=== PATIENT | female | born 1955 | race Caucasian/White ===

== ENCOUNTER 2017-01-30 14:43 | Emergency (ER) | payer OTHER ==
[2017-01-30 14:53] VITALS: BP 138/98; PULSE 76; TEMP 98.3; BMI 20.5
--- NOTE | 2017-01-30 14:53 | PDOC ---
History of Present Illness - General History Source: Patient Exam Limitations: No Limitations - History of Present Illness Initial Comments: 01/30/17 15:04 The patient is a 61 year old female, with no significant past medical history, who presents to the emergency department complaining of bleeding from the umbilicus for approximately 5 days. The patient reports initially she thought she was bit in her belly button last . Since then, patient reports she has noted bleeding and increased erythema to the area. Patient reports cleaning the area with baking soda, with no relief of symptoms. Patient states she now thinks the site is infected. She denies any associated weakness, fever, chills, headache, or dizziness. She denies any abdominal pain, nausea, vomiting, diarrhea, or constipation. She denies any recent travel or sick contacts. Patient reports she had exposure to MRSA about 1 year ago, but states her symptoms have since resolved. Allergies: Levofloxacin, Azithromycin Past Surgical History: None reported Social History: Former smoker. Social ETOH use. No recreational drug use. PCP: Dr. Berger <Glenda Venegas - Last Filed: 01/30/17 15:05> <Rm Zambrano - Last Filed: 01/30/17 15:24> - General Chief Complaint: Wound Stated Complaint: bleeding from umblicus Time Seen by Provider: 01/30/17 14:52 Past History <Glenda Venegas - Last Filed: 01/30/17 15:05> - Immunization History Td Vaccination: Yes (11/01/09) - Suicide/Smoking/Psychosocial Hx Smoking History: Former smoker Have you smoked in the past 12 months: No Number of Cigarettes Smoked Daily: 0 'Breaking Loose' booklet given: 03/20/13 Hx Alcohol Use: Yes (SOCIAL) Drug/Substance Use Hx: No Substance Use Type: None <Rm Zambrano - Last Filed: 01/30/17 15:24> - Past Medical History Allergies/Adverse Reactions: Allergies Allergy/AdvReac Type Severity Reaction Status Date / Time levofloxacin [From Levaquin] Allergy Unknown Verified 01/30/17 14:54 azithromycin [From Zithromax] Allergy Verified 01/30/17 14:54 egg Allergy Heart Verified 01/30/17 14:54 racing Home Medications: Ambulatory Orders Clindamycin [Cleocin -] 150 mg PO Q8H #21 capsule 01/30/17 Mupirocin Cream [Bactroban 2% Cream -] 1 applic TP TID #1 tube 01/30/17 Review of Systems - Review of Systems Able to Perform ROS?: Yes Comments:: 01/30/17 15:04 GENERAL/CONSTITUTIONAL: No fever or chills. No weakness. HEAD, EYES, EARS, NOSE AND THROAT: No change in vision. No ear pain or discharge. No sore throat. CARDIOVASCULAR: No chest pain or shortness of breath. RESPIRATORY: No cough, wheezing, or hemoptysis. GASTROINTESTINAL: No nausea, vomiting, diarrhea or constipation. GENITOURINARY: No dysuria, frequency, or change in urination. MUSCULOSKELETAL: No joint or muscle swelling or pain. No neck or back pain. SKIN: Yes Bleeding and erythema to the umbilicus. No rash NEUROLOGIC: No headache, vertigo, loss of consciousness, or change in strength/ sensation. ENDOCRINE: No increased thirst. No abnormal weight change. HEMATOLOGIC/LYMPHATIC: No anemia, easy bleeding, or history of blood clots. ALLERGIC/IMMUNOLOGIC: No hives or skin allergy. <Glenda Venegas - Last Filed: 01/30/17 15:05> *Physical Exam - Vital Signs Last Vital Signs Temp Pulse Resp BP Pulse Ox 98.3 F 76 18 138/98 100 01/30/17 14:50 01/30/17 14:50 01/30/17 14:50 01/30/17 14:50 01/30/17 14:50 - Physical Exam Comments: 01/30/17 15:04 GENERAL: Awake, alert, and fully oriented, in no acute distress HEAD: No signs of trauma EYES: PERRLA, EOMI, sclera anicteric, conjunctiva clear ENT: Auricles normal inspection, hearing grossly normal, nares patent, oropharynx clear without exudates. Moist mucosa NECK: Normal ROM, supple, no lymphadenopathy, JVD, or masses LUNGS: Breath sounds equal, clear to auscultation bilaterally. No wheezes, and no crackles HEART: Regular rate and rhythm, normal S1 and S2, no murmurs, rubs or gallops ABDOMEN: Soft, nontender, normoactive bowel sounds. No guarding, no rebound. No masses UMBILICUS: erythematous, mild swelling, nontender, with dried blood inside. EXTREMITIES: Normal range of motion, no edema. No clubbing or cyanosis. No cords, erythema, or tenderness NEUROLOGICAL: Cranial nerves II through XII grossly intact. Normal speech, normal gait SKIN: Warm, Dry, normal turgor, no rashes or lesions noted. <Glenda Venegas - Last Filed: 01/30/17 15:05> ED Treatment Course - ADDITIONAL ORDERS Additional order review: 01/30/17 15:20 Umbilicus appears crusty, dried blood mild erythema around arae, but no insect seen, active bleeding or tenderness Will treat for cellulitis with Clindamycin and Bactroban Pt is in agreement with plan If worsen return to ER <Rm Zambrano - Last Filed: 01/30/17 15:24> *DC/Admit/Observation/Transfer - Attestations Scribe Attestion: 01/30/17 15:04 Documentation prepared by Glenda Venegas, acting as medical instrument technician for Rm Zambrano MD. <Glenda Venegas - Last Filed: 01/30/17 15:05> - Discharge Dispostion Admit: No <Rm Zambrano - Last Filed: 01/30/17 15:24> Diagnosis at time of Disposition: Cellulitis of umbilicus - Discharge Dispostion Disposition: HOME Condition at time of disposition: Stable - Referrals Referrals: Rhiannon Hernández MD [Primary Care Provider] - - Patient Instructions Printed Discharge Instructions: DI for Cellulitis -- Adult Additional Instructions: Keep clean Clindamycin 150 mg 3x/day for 7 days Bactroban cream to area 3x/day for 5 days If worsen return to ER Follow up with PMD
== END 2017-01-30 15:39 | disposition home or self-care (01) ==
LOC: FER 14:43
DX: L03.316 Cellulitis of umbilicus (principal); R05 Cough; Z87.891 Personal history of nicotine dependence
CPT/HCPCS: 99281-25

== ENCOUNTER 2018-05-19 19:37 | Emergency (ER) | payer OTHER ==
[2018-05-19 19:59] VITALS: BP 110/50; PULSE 73; TEMP 98.3; BMI 20.5
[2018-05-19 20:07] LABS: URINE APPEARANCE Clear; URINE BILIRUBIN Negative (NEGATIVE); URINE COLOR Yellow; URINE GLUCOSE (UA) Negative (NEGATIVE); URINE KETONE Negative (NEGATIVE); URINE LEUK ESTERASE Negative (NEGATIVE); URINE NITRITE Negative (NEGATIVE); URINE PROTEIN Negative (NEGATIVE); URINE UROBILINOGEN 0.2 (0.2-1.0)
[2018-05-19] MEDS ORDERED: KETOROLAC TROMETHAMINE 30 MG/1 ML VIAL IVPUSH ONE (20:15)
[2018-05-19] MEDS ORDERED: SODIUM CHLORIDE 1,000 ML IV ONE (20:19)
--- NOTE | 2018-05-19 20:20 | PDOC ---
History of Present Illness - General History Source: Patient Exam Limitations: No Limitations - History of Present Illness Initial Comments: 05/19/18 21:00 The patient is a 62 year old male, with a no significant PMH, who presents to the emergency department complaining of urinary frequency for approximately 2 days ago. The patient states she endorses associated symptoms of right flank pain, shortness of breath, burning when urinating and fatigue. She reports having similar symptoms in the past and was diagnosed with a bladder infection. The patient denies chest pain, headache and dizziness. Denies fever , chills, nausea, vomit, diarrhea and constipation. Denies dysuria, urgency and hematuria. PAST MEDICAL HISTORY: no significant history PAST SURGICAL HISTORY: no significant history FAMILY HISTORY: no pertinent history SOCIAL HISTORY: Pt lives with family and is employed. MEDICATIONS: reviewed ALLERGIES: As per nursing notes Adult ROS General: No fevers or chills, no weakness, no weight loss HEENT: No change in vision. No sore throat,. No ear pain CardioVascular: No chest pain or shortness of breath Respiratory:No cough, or wheezing. Gastrointestinal: no nausea, vomiting, diarrhea or constipation, No rectal bleeding Genitourinary: + dysuria and frequency. No hematuria. Musculoskeletal: No joint or muscle pain or swelling Neurologic: No headache, vertigo, dizziness or loss of consciousness Psychiatric: nor depression Skin: No rashes or easy bruising Endocrine: no increased thirst or abnormal weight change Allergic: no skin or latex allergy All other systems reviewed and normal Adult Exam: General: Well-nourished well-developed individual, no acute distress HEENT: Throat: Normal, tonsils normal, no erythema or exudate Neck: Supple, no meningeal signs, no lymphadenopathy Eyes:Pupils equal reactive and round, extraocular motion intact Chest: Nontender to palpation Cardiac: S1-S2 normal, regular rate and rhythm, no murmurs rubs or gallops Respiratory: Lungs clear to auscultation bilateral Abdomen: Soft, nondistended, normal bowel sounds, nontender to palpation diffusely Extremities:+Mild right flank and suprapubic area. Warm, dry, no cyanosis, clubbing, or edema Skin: No rashes Neuro: Alert and oriented x3, nonfocal exam, grossly intact, normal gait Psych: Normal mood and affect <Yobani Walls - Last Filed: 05/19/18 21:00> - General History Source: Patient Exam Limitations: No Limitations - History of Present Illness Initial Comments: 05/19/18 20:17 A portion of this note was documented by scribe services under my direction. I have reviewed the details of the note, within reason, and agree with the documentation with the following case summary and management plan written by me. Patient treated in the ED. Nursing notes are reviewed and incorporated into the medical decision-making. Vital signs reviewed. Assessment plan: This is 62-year-old female who came in initially just complaining of some frequency of urination and saying that she thought she had a bladder infection as she has had similar symptoms in the past that were a result of a bladder infection. However patient's urinalysis was negative for any red cells white cells or bacteria. Patient's urine did show 2+ red cells. On further questioning of the patient she did admit to some right flank pain last night and also said that she was feeling short of breath she described it as a feeling that a vacuum was sucking all the air out of her lungs. Patient denied any chest pain, nausea, diaphoresis or any other associated symptoms. We'll obtain a more extensive workup including CBC, comp, EKG, chest x-ray, CAT scan abdomen and pelvis to rule out kidney stone. We'll give patient some Toradol and IV fluids. 05/19/18 21:57 CAT scan negative for any acute pathology no renal stones or evidence of recent renal stones. Patient discharged will follow-up with her primary care doctor <Vince Sanders I - Last Filed: 05/19/18 21:58> - General Chief Complaint: Urinary Problem Stated Complaint: UTI Time Seen by Provider: 05/19/18 19:41 Past History <Yobani Walls - Last Filed: 05/19/18 21:00> - Past Medical History Anemia: Yes COPD: No - Immunization History Td Vaccination: Yes (11/01/09) - Suicide/Smoking/Psychosocial Hx Smoking History: Never smoked Have you smoked in the past 12 months: No Number of Cigarettes Smoked Daily: 0 'Breaking Loose' booklet given: 03/20/13 Hx Alcohol Use: Yes (RARE) Drug/Substance Use Hx: No Substance Use Type: None <Vince Sanders I - Last Filed: 05/19/18 21:58> - Past Medical History Allergies/Adverse Reactions: Allergies Allergy/AdvReac Type Severity Reaction Status Date / Time levofloxacin [From Levaquin] Allergy Unknown Verified 01/30/17 14:54 azithromycin [From Zithromax] Allergy Verified 01/30/17 14:54 egg Allergy Heart Verified 01/30/17 14:54 racing Home Medications: Ambulatory Orders NK [No Known Home Medication] 05/19/18 *Physical Exam - Vital Signs Last Vital Signs Temp Pulse Resp BP Pulse Ox 98.3 F 73 15 110/50 L 98 05/19/18 19:38 05/19/18 19:38 05/19/18 19:38 05/19/18 19:38 05/19/18 19:38 <Yobani Walls - Last Filed: 05/19/18 21:00> - Vital Signs Last Vital Signs Temp Pulse Resp BP Pulse Ox 98.3 F 73 15 110/50 L 98 05/19/18 19:38 05/19/18 19:38 05/19/18 19:38 05/19/18 19:38 05/19/18 19:38 <Vince Sanders I - Last Filed: 05/19/18 21:58> Moderate Sedation - Procedure Monitoring Vital Signs: Procedure Monitoring Vital Signs Temperature 98.3 F 05/19/18 19:38 Pulse Rate 73 05/19/18 19:38 Respiratory Rate 15 05/19/18 19:38 Blood Pressure 110/50 L 05/19/18 19:38 O2 Sat by Pulse Oximetry (%) 98 05/19/18 19:38 <Yobani Walls - Last Filed: 05/19/18 21:00> - Procedure Monitoring Vital Signs: Procedure Monitoring Vital Signs Temperature 98.3 F 05/19/18 19:38 Pulse Rate 73 05/19/18 19:38 Respiratory Rate 15 05/19/18 19:38 Blood Pressure 110/50 L 05/19/18 19:38 O2 Sat by Pulse Oximetry (%) 98 05/19/18 19:38 <Vince Sanders I - Last Filed: 05/19/18 21:58> ED Treatment Course - LABORATORY CBC & Chemistry Diagram: 05/19/18 20:40 05/19/18 20:40 - ADDITIONAL ORDERS Additional order review: Laboratory Results 05/19/18 19:37 Urine Color Yellow Urine Appearance Clear Urine pH 6.0 Ur Specific Kerrick 1.020 Urine Protein Negative Urine Glucose (UA) Negative Urine Ketones Negative Urine Blood 2+ H Urine Nitrite Negative Urine Bilirubin Negative Urine Urobilinogen 0.2 Ur Leukocyte Esterase Negative - Medications Given in the ED: ED Medications Discontinued Medications Generic Name Dose Route Start Last Admin Trade Name Lawson PRN Reason Stop Dose Admin Ketorolac Tromethamine 30 mg 05/19/18 20:15 05/19/18 20:40 Toradol Injection - IVPUSH 05/19/18 20:16 30 mg ONCE ONE Administration <Yobani Walls - Last Filed: 05/19/18 21:00> - LABORATORY CBC & Chemistry Diagram: 05/19/18 20:40 05/19/18 20:40 - ADDITIONAL ORDERS Additional order review: Laboratory Results 05/19/18 19:37 Urine Color Yellow Urine Appearance Clear Urine pH 6.0 Ur Specific Kerrick 1.020 Urine Protein Negative Urine Glucose (UA) Negative Urine Ketones Negative Urine Blood 2+ H Urine Nitrite Negative Urine Bilirubin Negative Urine Urobilinogen 0.2 Ur Leukocyte Esterase Negative - RADIOLOGY Radiology Studies Ordered: Category Date Time Status ABDOMEN & PELVIS CT W/O CONTR [CT] Stat CT Scan 05/19/18 20:16 Ordered CHEST X-RAY PORTABLE* [RAD] Stat Radiology 05/19/18 20:14 Ordered <Vince Sanders I - Last Filed: 05/19/18 21:58> *DC/Admit/Observation/Transfer <Yobani Walls - Last Filed: 05/19/18 21:00> - Discharge Dispostion Decision to Admit order: No <Vince Sanders I - Last Filed: 05/19/18 21:58> Diagnosis at time of Disposition: Suprapubic discomfort - Discharge Dispostion Disposition: HOME Condition at time of disposition: Good - Referrals Referrals: Rhiannon Hernández MD [Primary Care Provider] - - Patient Instructions Additional Instructions: U can take Tylenol or Motrin as needed for pain. Your blood work and CAT scan were all normal Return to the emergency department immediately with ANY new, persistent or worsening symptoms. Continue any medications as previously prescribed by your physician. You should follow up with your primary doctor as soon as possible regarding today's emergency department visit. . Please make sure your doctor reviews the results of your emergency evaluation. Thank you for coming to the Emergency Department today for your care. It was a pleasure to see you today. Please note that your evaluation is INCOMPLETE until you follow-up with your doctor. - Post Discharge Activity
[2018-05-19] MEDS ORDERED: KETOROLAC TROMETHAMINE 30 MG/1 ML VIAL ONE (20:26)
[2018-05-19 21:04] LABS: BASO % 1.2 % (0-2.0); EOS % 3.1 % (0-4.5); HEMATOCRIT 36.5 % (32.4-45.2); HEMOGLOBIN 12.3 GM/dl (10.7-15.3); LYMPH % 25.4 % (8-40); MCH 30.6 pg (25.7-33.7); MCHC 33.8 g/dl (32.0-36.0); MEAN CELL VOLUME 90.5 fl (80-96); MEAN PLT VOLUME 8.9 fl (7.5-11.1); MONO % 7.5 % (3.8-10.2); NEUT % 62.8 % (42.8-82.8); PLATELET COUNT 231 K/MM3 (134-434); RBC 4.03 M/mm3 (3.60-5.2); RDW 12.8 % (11.6-15.6); WHITE BLOOD COUNT 5.9 K/mm3 (4.0-10.8)
[2018-05-19 21:14] LABS: URINE WBC 0-2 (0-5)
[2018-05-19 21:15] LABS: EPI CELLS FEW /HPF
[2018-05-19 21:15] LABS: ALBUMIN 4.4 g/dl (3.4-5.0); ALK PHOS 51 U/L (45-117); ANION GAP 8 MMOL/L (8-16); BILIRUBIN,TOTAL 0.4 mg/dl (0.2-1); BLOOD UREA NITROGEN 17 mg/dl (7-18); CALCIUM 9.5 mg/dl (8.5-10); CHLORIDE 102 mmol/L (98-107); CO2 27 mmol/L (21-32); CREATININE 0.7 mg/dl (0.55-1.3); GLUCOSE,RANDOM 80 mg/dl (74-106); POTASSIUM 4.2 mmol/L (3.5-5.1); SGOT/AST 26 U/L (15-37); SGPT/ALT 19 U/L (13-61); SODIUM 137 mmol/L (136-145); TOT PROT 6.9 g/dl (6.4-8.2)
[2018-05-19 21:54] LABS: LIPASE 360 U/L (73-393)
--- NOTE | 2018-05-20 10:57 | EKG ---
Test Reason : Blood Pressure : / mmHG Vent. Rate : 062 BPM Atrial Rate : 062 BPM P-R Int : 136 ms QRS Dur : 086 ms QT Int : 420 ms P-R-T Axes : 045 085 063 degrees QTc Int : 426 ms NORMAL SINUS RHYTHM NORMAL ECG NO PREVIOUS ECGS AVAILABLE Confirmed by JONATHAN DELUCA MD ([id number]) on 05/20/2018 10:57:13 AM Referred By: MICHAEL Confirmed By:JONATHAN DELUCA MD
== END 2018-05-19 22:04 | disposition home or self-care (01) ==
LOC: FER 19:37
PROC: 3E0333Z Introduction of Anti-inflammatory into Peripheral Vein, Percutaneous Approach (ICD-10-PCS; principal; 2018-05-19)
PROC: 3E0337Z Introduction of Electrolytic and Water Balance Substance into Peripheral Vein, Percutaneous Approach (ICD-10-PCS; 2018-05-19)
DX: R10.30 Lower abdominal pain, unspecified (principal)
CPT/HCPCS: 36415; 71045-TC-FY; 74176-TC; 80053; 81003; 81015; 82550; 83690; 84484; 85025; 87086; 93005; 99283-25; J7030

== ENCOUNTER 2018-10-11 14:45 | Emergency (ER) | payer OTHER ==
[2018-10-11] MEDS ORDERED: FLUORESCEIN NA 1 EA STRIP ONE (14:55)
[2018-10-11] MEDS ORDERED: TETRACAINE 0.5% OPHTH SOLN 2 ML BOTTLE ONE (14:55)
[2018-10-11] MEDS ORDERED: TETRACAINE 0.5% OPHTH SOLN 2 ML BOTTLE OS ONE (15:01)
[2018-10-11 15:13] VITALS: BP 118/66; PULSE 80; TEMP 98.3; BMI 23.8
[2018-10-11] MEDS ORDERED: IBUPROFEN 600 MG TABLET (FP) PO ONE ×2 (15:22→15:31)
--- NOTE | 2018-10-11 15:22 | PDOC ---
History of Present Illness - General Chief Complaint: Injury Stated Complaint: LEFT EYE PAIN Time Seen by Provider: 10/11/18 14:52 - History of Present Illness Initial Comments: 10/11/18 15:24 The patient is a 63 year old female with no PMH presents c/o 1 day h/o acute onset of eye pain and redness. States she first noticed bilateral redness yesterday evening. This morning she started feeling a sharp pain in her R eye prompting her visit to our ED. Pain is intermittent, lasts 1-2 seconds and improves when she blinks her eyes. 10/11/18 17:44 Past History - Past Medical History Allergies/Adverse Reactions: Allergies Allergy/AdvReac Type Severity Reaction Status Date / Time levofloxacin [From Levaquin] Allergy Unknown Verified 10/11/18 14:46 azithromycin [From Zithromax] Allergy Verified 10/11/18 14:46 egg Allergy Heart Verified 10/11/18 14:46 racing Home Medications: Ambulatory Orders Polymyxin B Sulfate/Tmp [Polytrim Opthalmic Solution -] 1 drop OP Q3H 7 Days #1 bottle 10/11/18 Anemia: Yes COPD: No - Immunization History Td Vaccination: Yes (11/01/09) - Suicide/Smoking/Psychosocial Hx Smoking History: Never smoked Have you smoked in the past 12 months: No Number of Cigarettes Smoked Daily: 0 'Breaking Loose' booklet given: 03/20/13 Hx Alcohol Use: Yes (RARE) Drug/Substance Use Hx: No Substance Use Type: None *Physical Exam - Vital Signs Last Vital Signs Temp Pulse Resp BP Pulse Ox 98.3 F 80 20 118/66 100 10/11/18 14:46 10/11/18 14:46 10/11/18 14:46 10/11/18 14:46 10/11/18 14:46 Medical Decision Making - Medical Decision Making 10/11/18 15:24 63 year old female with acute onset of L eye pain. VS unremarkable 10/11/18 18:10 No foriegn body or corneal abrasion under *DC/Admit/Observation/Transfer Diagnosis at time of Disposition: Conjunctivitis, Foreign body in eye - Discharge Dispostion Disposition: HOME Condition at time of disposition: Good Decision to Admit order: No - Prescriptions Prescriptions: Polymyxin B Sulfate/Tmp [Polytrim Opthalmic Solution -] 1 drop OP Q3H 7 Days #1 bottle - Referrals - Patient Instructions Printed Discharge Instructions: Conjunctivitis Additional Instructions: We have sent a prescription to your pharmacy. Please take the entire antibiotic course. Please keep your previously scheduled appointment with ophthalmology. Return to the Emergency Department for any new/worsening/concerning symptoms. - Post Discharge Activity
--- NOTE | 2018-10-11 15:25 | PDOC ---
Attending Attestation - Resident Resident Name: Genesis Alanis - ED Attending Attestation I have performed the following: I have examined & evaluated the patient, The case was reviewed & discussed with the resident, I agree w/resident's findings & plan, Exceptions are as noted - HPI HPI: 10/11/18 15:22 63 yo F with c/o bilat eye redness left eye foreign body sensation. pt states few hours ago she developed left eye pain. stabbing pain. thought she saw something in her eye. no contact. use. no light sensitivity. no fb sensation. no headache. has appt with opthomologist next week, but wanted to get seen. did not take anything for her pain. - Physicial Exam PE: 10/11/18 15:23 awake alert lungs clear bilat. heart rrr no mrg. left eye min injection. noted FB eye lash, removed. no flourescin uptake blue lamp. visual acuity 20/25 left right right 20/40 - Medical Decision Making 10/11/18 15:24 pt with foreign body of eye lash removed. mild conjunctival irritation. no flourescin uptake. will treat with polytrm opth due to redness. fu optho dr Flores next week.
== END 2018-10-11 15:44 | disposition home or self-care (01) ==
LOC: FER 14:45
DX: T15.92XA Foreign body on external eye, part unspecified, left eye, initial encounter (principal); X58.XXXA Exposure to other specified factors, initial encounter; Y93.9 Activity, unspecified; Y92.89 Other specified places as the place of occurrence of the external cause; H10.9 Unspecified conjunctivitis; D64.9 Anemia, unspecified
CPT/HCPCS: 99281-25

== ENCOUNTER 2019-05-14 14:30 | Emergency (ER) | payer OTHER ==
[2019-05-14 14:38] VITALS: BP 127/54; PULSE 73; TEMP 98.5
--- NOTE | 2019-05-14 15:17 | PDOC ---
History of Present Illness - General Chief Complaint: Ear Problem Stated Complaint: LEFT EAR PROBLEM Time Seen by Provider: 05/14/19 14:37 History Source: Patient Exam Limitations: No Limitations - History of Present Illness Initial Comments: 05/14/19 15:12 Ms. Echeverria is a 63-year-old female who presents emergency department with a complaint of left ear pain. Patient states her symptoms began 2 days ago. Pain was initially minimal and then progressively worsened. Pain is not associated with fevers or chills. She denies tinnitus or hearing loss. Patient denies sore throat. No myalgias or arthralgias. No cough or throat pain. 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 Patient also has been seen by retinal specialist who told her she has a vitreous humor detachment. Patient will be seeking follow-up for these things tomorrow with Dr. Hess at [facility] PMH: Corneal epithelial membrane dystrophy PSH: Denies Meds: Danita eyedrop ALL: Levaquin, azithromycin, egg Social: Denies alcohol, drug, cigarette FH: Noncontributory ROS: GENERAL/CONSTITUTIONAL: No: fever, chills, weakness, loss of appetite. HEAD, EYES, EARS, NOSE AND THROAT: Yes: Left ear pain no: change in vision, ear pain, discharge, sore throat, throat swelling. CARDIOVASCULAR: No: chest pain, lightheadedness, palpitations, syncope RESPIRATORY: No: cough, shortness of breath, wheezing, hemoptysis, stridor. GASTROINTESTINAL: No: nausea, vomiting, diarrhea, abdominal cramping, rectal bleeding, constipation. GENITOURINARY: No: dysuria, hematuria, frequency, urgency, flank pain. MUSCULOSKELETAL: No: back pain, neck pain, joint pain, muscle swelling or pain SKIN: No: lesions, pallor, rash or easy bruising. NEUROLOGIC: No: headache, vertigo, paresthesias, weakness ENDOCRINE: No: unexplained weight gain or loss HEMATOLOGIC/LYMPHATIC: No: anemia, easy bleeding, swelling nodes. PE: GENERAL: The patient is in no acute distress. HEAD: Normal with no signs of trauma. EYES: PERRLA, EOMI, sclera anicteric, conjunctiva clear. ENT: Right ear: TM normal, no bulging, no erythema Left ear: View is partially obscured by cerumen, TM slightly erythematous, not bulging There is no debris or purulence in the external auditory canal NECK: Normal range of motion, supple LUNGS: Breath sounds equal, clear to auscultation bilaterally. No wheezes, and no crackles. HEART:Regular rate and rhythm, normal S1 and S2 without murmur, rub or gallop. ABDOMEN: Soft, nontender, normoactive bowel sounds. EXTREMITIES: Normal range of motion, no edema. NEUROLOGICAL: Cranial nerves II through XII grossly intact. Normal speech. No focal neurological deficits. MUSCULOSKELETAL: Back non-tender to palpation, no CVA tenderness SKIN: Warm, Dry, normal turgor, no rashes or lesions noted. Past History - Past Medical History Allergies/Adverse Reactions: Allergies Allergy/AdvReac Type Severity Reaction Status Date / Time levofloxacin [From Levaquin] Allergy Unknown Verified 05/14/19 14:36 azithromycin [From Zithromax] Allergy Verified 05/14/19 14:36 egg Allergy Heart Verified 05/14/19 14:36 racing Home Medications: Ambulatory Orders Amoxicillin - [Amoxicillin 500mg Capsule -] 500 mg PO TID #15 capsule 05/14/19 Bifidobacterium Infantis [Align] 10.5 mg PO DAILY #10 tab.chew 05/14/19 Sodium Chloride [Danita-128] 1 drop OS Q4H 05/14/19 Anemia: Yes COPD: No Other medical history: CORNEAL EPITHELEAL & BASEMENT MEMBRANE DYSTROPHY - Immunization History Td Vaccination: (11/01/09) - Psycho Social/Smoking Cessation Hx Smoking History: Never smoked Have you smoked in the past 12 months: No Number of Cigarettes Smoked Daily: 0 Information on smoking cessation initiated: No 'Breaking Loose' booklet given: 03/20/13 Hx Alcohol Use: No Drug/Substance Use Hx: No Substance Use Type: None *Physical Exam - Vital Signs Last Vital Signs Temp Pulse Resp BP Pulse Ox 98.5 F 73 18 127/54 L 100 05/14/19 14:30 05/14/19 14:30 05/14/19 14:30 05/14/19 14:30 05/14/19 14:30 Medical Decision Making - Medical Decision Making 05/14/19 15:15 63-year-old female presenting to the emergency department with a complaint of left ear pain. Exam is equivocal however patient states she is previously had this symptom and was treated for an ear infection We will discharge to home on amoxicillin Clinical impression: Otalgia, initial presentation Discharge - Discharge Information Problems reviewed: Yes Clinical Impression/Diagnosis: Otalgia of left ear Condition: Stable Disposition: HOME - Admission No - Follow up/Referral Referrals: Rafael Kay MD [Primary Care Provider] - - Patient Discharge Instructions Patient Printed Discharge Instructions: DI for Ear Pain-Adult Additional Instructions: Ms. Wallis Thank you for coming into the emergency department today Please take medications as prescribed Please also take align while taking antibiotics Please only take Tylenol for pain Return to the emergency department immediately with ANY new, persistent or worsening symptoms. Continue any medications as previously prescribed by your physician. You should follow up with your primary doctor as soon as possible regarding today's emergency department visit. Please make sure your doctor reviews the results of your emergency evaluation. Thank you for coming to the [facility] today for your care. It was a pleasure to see you today. Please note that your evaluation is INCOMPLETE until you follow-up with your doctor. - Post Discharge Activity
== END 2019-05-14 15:30 | disposition home or self-care (01) ==
LOC: FER 14:30 → SUPCPDRO 14:30 → FER 15:30
DX: H92.02 Otalgia, left ear (principal); Z88.8 Allergy status to other drugs, medicaments and biological substances; Z91.018 Allergy to other foods
CPT/HCPCS: 99282-25

== ENCOUNTER 2021-01-07 14:03 | Emergency (ER) | payer OTHER ==
[2021-01-07 14:18] VITALS: BP 123/53; PULSE 98; TEMP 98.6; BMI 20.5
[2021-01-07] MEDS ORDERED: DIPHTH,PERTUSS(ACELL),TET 0.5 ML DISP.SYRIN IM ONE ×2 (14:24→14:37)
== END 2021-01-07 15:12 | disposition home or self-care (01) ==
LOC: FER 14:03
PROC: 3E0234Z Introduction of Serum, Toxoid and Vaccine into Muscle, Percutaneous Approach (ICD-10-PCS; principal; 2021-01-07)
DX: M79.671 Pain in right foot (principal)
CPT/HCPCS: 73630-TC-RT-FY; 90471; 90715; 99284-25

== ENCOUNTER 2021-05-18 15:54 | Emergency (ER) | payer OTHER ==
[2021-05-18 16:27] VITALS: BP 143/88; PULSE 74; TEMP 98.6; BMI 31.0
== END 2021-05-18 17:13 | disposition home or self-care (01) ==
LOC: FER 15:54
DX: R10.30 Lower abdominal pain, unspecified (principal)
CPT/HCPCS: 81003; 81015; 87086; 99283-25

== ENCOUNTER 2023-08-31 18:57 | Emergency (ER) | payer OTHER ==
[2023-08-31 19:07] VITALS: BP 108/64; PULSE 82; RESP 16; TEMP 98.2; BMI 20.1
[2023-08-31 19:54] LABS: HEMATOCRIT 41.6 % (32.4-45.2); MCH 30.7 pg (25.7-33.7); MCHC 33.7 g/dl (32.0-36.0); MEAN CELL VOLUME 91.2 fl (80-96); MEAN PLT VOLUME 8.7 fl (7.5-11.1); PLATELET COUNT 159.3 10^3/uL (134-434); RBC 4.56 10^6/uL (3.60-5.2); RDW 14.1 % (11.6-15.6); WHITE BLOOD COUNT 4.1 10^3/uL (4.0-10.8)
[2023-08-31 20:02] LABS: ALBUMIN 4.5 g/dl (3.4-5.0); BILIRUBIN,TOTAL 0.5 mg/dl (0.2-1); CALCIUM 9.5 mg/dl (8.5-10.1); CREATININE 0.8 mg/dl (0.6-1.3); POTASSIUM 3.9 mmol/L (3.5-5.1); TOT PROT 6.9 g/dl (6.4-8.2)
[2023-08-31] MEDS: ONDANSETRON *ODT* 4 MG TABLET SL ONE (20:52)
[2023-08-31] MEDS ORDERED: ONDANSETRON *ODT* 4 MG TABLET ONE (20:52)
== END 2023-08-31 20:54 | disposition home or self-care (01) ==
LOC: FER 18:57
DX: M79.671 Pain in right foot (principal); B34.9 Viral infection, unspecified
CPT/HCPCS: 36415; 73630-TC-RT-FY; 80053; 85027; 99284-25; Q0162